=== PATIENT | male | born 1965 | race Two or more races ===

== ENCOUNTER 2018-05-15 07:24 | Outpatient (CLI) | payer OTHER | END 2018-05-15 07:39 | disposition home or self-care (01) | LOC: TOM 07:24 | DX: C61 Malignant neoplasm of prostate (principal) ==

== ENCOUNTER → 2018-05-24 | Outpatient (CLI) | payer OTHER | END | disposition home or self-care (01) | LOC: NUCLEAR 07:54 | DX: C61 Malignant neoplasm of prostate (principal); C79.51 Secondary malignant neoplasm of bone | CPT/HCPCS: 78306; A9503 ==

== ENCOUNTER → 2018-06-06 | Outpatient (CLI) | payer OTHER | END | disposition home or self-care (01) | LOC: TOM 10:11 | DX: J01.01 Acute recurrent maxillary sinusitis (principal); J01.11 Acute recurrent frontal sinusitis ==

== ENCOUNTER 2018-06-08 13:51 | Outpatient (CLI) | payer OTHER | END 2018-06-08 14:13 | disposition home or self-care (01) | LOC: TOM 13:51 | DX: C61 Malignant neoplasm of prostate (principal); J01.01 Acute recurrent maxillary sinusitis; J01.81 Other acute recurrent sinusitis ==

== ENCOUNTER 2021-10-27 13:28 | Outpatient (CLI) | payer OTHER | END 2021-10-27 13:30 | disposition home or self-care (01) | LOC: NUCLEAR 13:28 | PROVIDERS: ATTEND Urology | DX: M81.0 Age-related osteoporosis without current pathological fracture (principal) ==

== ENCOUNTER → 2022-04-07 08:00 | Outpatient (CLI) | payer OTHER ==
[~2022-04-07 08:00] MED LIST: DICLOFENAC POTA50 MG PO; NORFLEX100MG PO; TOVIAZ8 MG PO; TRELSTAR
== END | disposition home or self-care (01) ==
LOC: ADM 07:15 → LAB 08:00 → EDSTATUS 04-12 07:15 → CIR.AMB 04-12 07:15
PROVIDERS: ATTEND Surgery
DX: N52.9 Male erectile dysfunction, unspecified (principal); N48.6 Induration penis plastica; Z20.828 Contact with and (suspected) exposure to other viral communicable diseases

== ENCOUNTER 2022-05-17 09:18 | Day surgery (SDC) | payer OTHER ==
[~2022-05-17] VITALS: Ht 188 cm; Wt 77.1 kg
[2022-05-17] MEDS ORDERED: PERCOCET 5-3251 EACH PO (16:11)
== END 2022-05-17 17:50 | disposition home or self-care (01) ==
LOC: CIR.AMB 09:18
PROVIDERS: ATTEND Surgery
DX: N52.01 Erectile dysfunction due to arterial insufficiency (principal); N48.6 Induration penis plastica; Z20.822 Contact with and (suspected) exposure to COVID-19; Z88.0 Allergy status to penicillin
CPT/HCPCS: 54405; C1813

== ENCOUNTER 2023-06-22 07:27 | Outpatient (CLI) | payer OTHER ==
[~2023-06-22 07:27] MED LIST changes: +PERCOCET 5-3251 EACH PO
== END 2023-06-22 07:34 | disposition home or self-care (01) ==
LOC: NUCLEAR 07:27
PROVIDERS: ATTEND Internal Medicine Hematology & Oncology
DX: C61 Malignant neoplasm of prostate (principal); E29.1 Testicular hypofunction